=== PATIENT | female | born 1945 | race Caucasian/White ===

== ENCOUNTER 2023-09-24 14:18 | Day surgery (SDC) | payer MEDICARE, OTHER, SELFPAY ==
--- NOTE | 2023-09-24 09:22 | ED.GENMED ---
History of Present Illness
General
Chief Complaint: Abdominal Pain
Source: patient
Exam Limitations: none
Time Seen by Provider: 09/24/23 09:00
Travel History
Have you had any contact with someone who has COVID-19?: No
Do you have any symptoms of coronavirus? Fever > 100 degrees, chills, cough, shortness of breath, sore throat, loss of taste or smell, muscle aches, or headache?: No
History of Present Illness
History of Present Illness:
78-year-old female started with abdominal bloating 2 days ago. Then noted right lower quadrant pain. Some anorexia some nausea. Possible fever at home. No history of similar pain. Increased pain with bouncing
Past History
Past History
ED Past Medical History: GERD
ED Past Surgical History: Gynecological and Tonsilectomy
Social History
Tobacco: Non-smoker
Alcohol: Occasional
Personal:
Living: with family
Employment: Retired
Family History
Family History: CAD
Review of Systems
Review of Systems
All Other Systems: Not applicable
Respiratory: Reports no symptoms
Cardiac: Reports no symptoms
ABD/GI: Reports black stools
Phy Exam
Physical Exam
Physical Exam:
GENERAL: Alert and oriented in no apparent distress
EYE: Orbits normal.
NECK: Supple
CARDIAC: Regular rate and rhythm without any obvious murmurs.
LUNGS: Clear breath sounds,normal
ABDOMEN: Soft, bowel sounds present. Moderate right lower quadrant tenderness. Some referred pain with palpation. No rebound or guarding no mass or hernia. Stool test negative. No CVA tenderness
NEUROLOGICAL: Alert and oriented , grossly non-focal
SKIN: Warm and dry, no rash or lesion, no discoloration, skin intact.
MUSCULOSKELETAL: No edema,no deformity.Good color
PSYCH: Normal and appropriate interaction.
Course
Orders/Labs/Results
Orders:
Orders
09/24/23 Breakfast
Regular
09/24/23 09:12
CT Abd/pel W Iv And Oral Contr Urgent
Comment:
Reason For Exam: Right lower quadrant pain
IV Insert/Care/Rem.- Treatment PRN
0.9% Sodium Chloride 500 ml [Nss] 500 ml IV BOLUS
Iohexol [Omnipaque] See Protocol PO NOW STA
09/24/23 09:23
Complete Blood Count/With Diff Urgent
Comprehensive Metabolic Panel Urgent
Lipase Urgent
09/24/23 11:07
Urinalysis Reflex To Culture Urgent
Date Specimen was Collected: 09/24/23
Time Specimen was Collected: 11:00
09/24/23 12:37
Piperacillin/Tazo 3.375 Gram [Zosyn] 3.375 gram in 50 ml IV NOW
09/24/23 13:11
HYDROmorphone [Dilaudid] 0.25 mg IV PACU-Q5MPRN PRN
Meperidine [Demerol] 12.5 mg IV PACU-Q5MPRN PRN
Morphine Sulfate 1 mg IV PACU-Q5MPRN PRN
Ondansetron Injectable [Zofran] 4 mg IV PACU-ONCEPRN PRN
Notify MD As Directed
Notify physician if: for SDS patients with known or suspected sleep obstructive sleep apnea, monitor in the
PACU.
Notify MD for any apneic/desaturation episodes
O2 Therapy [RESP] Urgent
Titrate/Wean O2 to maintain O2 sat greater than (%): 92
Special Instructions: -Provide supplemental oxygen to achieve O2 sat of 92% or greater.
-After 15 min, may wean O2 and discontinue if patient is able to maintain O2 sat of 92%
or greater during recovery period.
If patient is a discharge home, without oxygen therapy, notify anestheiologist if
unable to maintain O2 SAT of 92% or greater on room air for MD clearance.
09/24/23 13:12
Bupivacaine Pf 0.5% [Sensorcaine 0.5% Single Dose] 30 ml .ROUTE .STK-MED ONE
09/24/23 13:15
Dexamethasone Sod Phosphate [Decadron] 20 mg .ROUTE .STK-MED ONE
Fentanyl Citrate/Pf [Sublimaze] 100 mcg .ROUTE .STK-MED ONE
Lidocaine HCl/Pf [Xylocaine-Mpf 1% Vial] 50 mg .ROUTE .STK-MED ONE
Normosol (Mult Electrolytes) [Normosol-R] 1,000 ml IV PER PROTOCOL
Propofol [Diprivan] 20 ml .ROUTE .STK-MED
Rocuronium [place] [Rocuronium] 50 mg .ROUTE .STK-MED ONE
09/24/23 14:18
OR Pathology Routine
Pre-Operative Diagnosis: acute appendicitis
Post-Operative Diagnosis: acute appendicitis
Operative Procedure: Lap Appendectomy
Surgeon: Dianna
Circulating Nurse: Zia
Specimen Type: appendix
09/24/23 14:20
Ketorolac [Toradol] 30 mg .ROUTE .STK-MED ONE
Sugammadex Sodium [Bridion] 200 mg .ROUTE .STK-MED ONE
09/24/23 14:28
Discharge Patient As Directed
09/24/23 14:32
Admit Patient As Directed
Co-Sign Provider:
Level of Care: Post Proc/Surg Recovery
Assign to:: Medical/Surgical
Physician / Group: Dianna
Diagnosis: Acute appendicitis
Reason for Overnight Stay: Standard of Care
Code Status As Directed
Resuscitation Status: Full Code
Activity As Directed
Activity Level: Out of Bed-Early Mobility
Anti-embolism (TOR) Hose As Directed
Type: Thigh high
Intake/ Output As Directed
Frequency: Per unit guidelines
Vital Signs As Directed
Frequency: Per unit guidelines
09/24/23 14:33
Pneumatic Compression Sleeves As Directed
Type: Knee high
Rx Incentive Spirometry [RESP] Routine
Frequency: q1h while awake
# of times per hour: 10
DX Deep Vein Thrombosis Video Routine
09/24/23 14:56
Acetaminophen [Tylenol] 650 mg PO SDS-Q4HPRN PRN
Oxycodone [Roxicodone] 10 mg PO SDS-Q4HPRN PRN
Oxycodone [Roxicodone] 5 mg PO SDS-Q4HPRN PRN
09/24/23 18:00
Enoxaparin Sodium [Lovenox] 40 mg SC QPM
09/24/23 18:22
Ondansetron Injectable [Zofran] 4 mg IV SDS-ONCEPRN PRN
Abnormal Lab Results
09/24/23
09:23
WBC 15.2 H 10^3/uL
(4.8-10.8)
MPV 10.9 H fL
(7.4-10.4)
Abs Immat Gran (auto) 0.1 H 10^3/uL
(0-0.05)
Absolute Neuts (auto) 13.3 H 10^3/uL
(1.4-6.5)
Absolute Lymphs (auto) 1.1 L 10^3/uL
(1.2-3.4)
Absolute Monos (auto) 0.7 H 10^3/uL
(0.1-0.6)
Neutrophils % 87.0 H %
(42.2-75.2)
Lymphocytes % 7.2 L %
(20.5-51.1)
Glucose 154 H mg/dl
(70-99)
Total Protein 6.2 L g/dl
(6.3-8.2)
09/24/23 09:23
09/24/23 09:23
Vital Signs
Initial and Last Documented VS:
Initial Vital Signs
Temp Pulse Resp BP Pulse Ox
98.2 F 89 18 111/66 96
09/24/23 08:52 09/24/23 08:52 09/24/23 08:52 09/24/23 08:52 09/24/23 08:52
Last Documented Vital Signs
Temp Pulse Resp BP Pulse Ox
98.0 F 66 15 127/69 99
09/24/23 14:38 09/24/23 15:15 09/24/23 15:15 09/24/23 15:15 09/24/23 15:15
MDM/Problems Addressed
Differential Diagnosis Includes:
Very suspicious for appendicitis or right-sided diverticulitis. Workup in progress. Dark stool is negative. Patient has been taking Pepto-Bismol
*Radiology
Radiology exam reviewed: radiology read reviewed (Acute appendicitis)
*Pulse Oximetry
Patient hypoxic: no
*Critical Care Note
Total Time (30-74mins, 75-104mins- exclusive of procedures): Not Applicable
Update Note
Update Note:
Patient updated on CT findings. Surgery contacted. Awaiting callback. Patient will be given copy of CT report to follow-up the narrowing
ED Attending Note
-
Portions of this chart may have been created with voice recognition software.� Occasional wrong word or��sound alike� substitutions may have occurred due to the inherent limitations of voice recognition software.
Discharge Plan
Departure
Patient Disposition: Admit
Date of Disposition: 09/24/23
Time of Disposition: 12:04
Presentation/result/management discussed w/ accepting MD/DO: Surgery
Discharge Problem:
Acute appendicitis
Interventions
Interventions:
*Risk Screen - Suicide Last Done: 09/24/23 08:55
*General Assessment Last Done: 09/24/23 08:55
*Neglect/Abuse Screening Last Done: 09/24/23 08:55
ED- Fall Risk Assessment Last Done: 09/24/23 09:07
*ED COVID-19 Vaccine History Last Done: 09/24/23 09:33
*Nursing Disposition Last Done: 09/24/23 13:23
YQ-Udwiuu-Ofrufmzoaw Assessment Last Done: 09/24/23 09:04
Discharge Date and Time
Discharge Date/Time: 09/24/23 13:24
[2023-09-24] MEDS: OMNIPAQUE 50 ML PO (09:27)
[2023-09-24] MEDS: NSS 500 IV (09:28)
[2023-09-24 09:29] LABS: % Basophils 0.4 % (0-2); % Eosinophils 0.5 % (0-6); % Immature Granulocytes 0.5 % (0-0.5); % Lymphocytes 7.2 % (20.5-51.1); % Monocytes 4.4 % (1.7-9.3); Absolute Basophils 0.1 10^3/uL (0-0.2); Absolute Eosinophils 0.1 10^3/uL (0-0.7); Absolute Immature Granulocytes 0.1 10^3/uL (0-0.05); Absolute Lymphocytes 1.1 10^3/uL (1.2-3.4); Absolute Monocytes 0.7 10^3/uL (0.1-0.6); Absolute Neutrophils 13.3 10^3/uL (1.4-6.5); Hematocrit 37.8 % (37.0-47.0); Hemoglobin 12.9 g/dL (12.0-16.0); Mean Corp Hgb Conc. 34.1 g/dL (33.0-37.0); Mean Corpuscular Hgb 29.5 pg (27.0-31.0); Mean Corpuscular Volume 86.3 fL (81.0-99.0); Mean Platelet Volume 10.9 fL (7.4-10.4); Nucleated Red Blood Cells % 0 %; Platelet Count 184 10^3/uL (130-400); Red Blood Cell Count 4.38 10^6/uL (4.20-5.40); Red Cell Dist. Width 13.5 % (11.5-14.5); White Blood Cell Count 15.2 10^3/uL (4.8-10.8)
[2023-09-24 09:52] LABS: ALT (SGPT) 26 U/L (0-35); AST (SGOT) 29 U/L (14-36); Albumin 3.5 g/dl (3.5-5.0); Alkaline Phosphatase 60 U/L (38-126); Blood Urea Nitrogen 12 mg/dl (7-17); Calcium 9.1 mg/dl (8.4-10.2); Carbon Dioxide 25 mmol/L (22-30); Chloride 102 mmol/L (98-107); Glucose 154 mg/dl (70-99); Sodium 135 mmol/L (135-145); Total Bilirubin 1.3 mg/dl (0.2-1.3); Total Protein 6.2 g/dl (6.3-8.2); eGFR > 60.00
[2023-09-24 10:14] LABS: Lipase 61 U/L (23-300)
[2023-09-24 11:22] LABS: Urine Albumin Negative (Neg - Trace); Urine Bilirubin Negative (Negative); Urine Character Clear (Clear); Urine Color Yellow; Urine Glucose Negative (Negative); Urine Ketone Negative (Negative); Urine Leukocyte Negative (Negative); Urine Nitrite Negative (Negative); Urine Occult Blood Negative (Negative); Urine Urobilinogen Negative (Neg - 1+)
[2023-09-24] MEDS: ZOSYN 50 IV (12:50)
--- NOTE | 2023-09-24 14:29 | CON.GS ---
Consultation
-
Requesting Provider: Eliecer
Performing Provider: Dianna
Reason for Consultation: Abd pain
Medical History
-
Chief Complaint: Abd pain
History of Present Illness:
78F with 2 day hx of acute onset abd discomfort. Began with bloating/anorexia/nausea, then developed pain to the RLQ. Pain exacerbated by bumpy car ride. Endorses nausea, subjective fevers, denies vomiting. No prior similar episodes.
Past Medical History
Past Medical History: GERD
Past Surgical History: Gynecological and Tonsilectomy
Social History
Tobacco: Non-Smoker
Alcohol: Occasional
Personal:
Living: With Family
Family History
Family History: Reviewed & Noncontributory
Allergies / Home Medications
Allergy/AdvReac Type Severity Reaction Status Date / Time
Sulfa (Sulfonamide Allergy Unknown Verified 09/24/23 08:52
Antibiotics)
sulfacetamide Allergy Unknown Verified 09/24/23 08:52
artificial sweetners Allergy Rash Uncoded 09/03/17 10:14
Medication Instructions Recorded Confirmed Type
Calcium Plus Power 1 tsp PO DAILY Supplement 08/22/17 09/24/23 History
Opc Supplement 1 tsp PO DAILY Supplement 08/22/17 09/24/23 History
lutein 40 mg capsule 40 mg PO DAILY Supplement 09/03/17 09/24/23 History
amoxicillin 875 mg-potassium 1 tab PO Q12 antibiotic #10 tabs 09/24/23 Rx
clavulanate 125 mg tablet
diphenhydramine 25 1 tab PO HSPRN PRN insomnia 09/24/23 09/24/23 History
mg-acetaminophen 500 mg tablet
(Tylenol PM Extra Strength)
fluticasone propionate 50 1 spray intranasal HS Congestion 09/24/23 09/24/23 History
mcg/actuation nasal
spray,suspension
magnesium oxide 500 mg PO DAILY Supplement 09/24/23 09/24/23 History
omeprazole 20 mg capsule,delayed 20 mg PO Q48H@0800 09/24/23 09/24/23 History
release Gastrointestinal Issue
oxycodone 5 mg tablet 5 - 10 mg PO Q4HPRN PRN moderate 09/24/23 Rx
to severe pain #10 tabs
therapeutic multivitamin 1 tab PO DAILY Supplement 09/24/23 09/24/23 History
vitamin B complex 1 tab PO DAILY Supplement 09/24/23 09/24/23 History
Review of Systems
-
A 10 point review of systems was completed, and was negative except as per HPI.
Physical Exam
Vital Signs
Temp Pulse Resp BP Pulse Ox
98.2 F 89 18 114/70 98
09/24/23 08:52 09/24/23 08:52 09/24/23 08:52 09/24/23 12:54 09/24/23 13:01
09/23/23 09/24/23 09/25/23
06:59 06:59 06:59
Actual Weight 71 kg
Lab Results
09/24/23 09:23
09/24/23 09:23
WBC 15.2 10^3/uL (4.8-10.8) H 09/24/23 09:23
Hgb 12.9 g/dL (12.0-16.0) 09/24/23 09:23
Hct 37.8 % (37.0-47.0) 09/24/23 09:23
Plt Count 184 10^3/uL (130-400) 09/24/23 09:23
Abs Immat Gran (auto) 0.1 10^3/uL (0-0.05) H 09/24/23 09:23
Neutrophils % 87.0 % (42.2-75.2) H 09/24/23 09:23
Physical Exam
General: Well Developed, Well Nourished and No Apparent Distress
HEENT: Normocephalic and Anicteric
GI: Soft, Non Distended and Tender (ttp to RLQ)
Skin: Warm and Dry
Neuro: AO x 3
Psych: Calm
Data Reviewed
-
CT Scan: Image Personally Visualized and interpreted, Report Reviewed by me, Discussed with Physician, Discussed with Patient and Discussed with Family
Labs: Labs Reviewed by me
Old Records: Reviewed
Assessment / Plan
-
78F with acute appendicitis
AFVSS, ttp to RLQ
WBC 15K
CT A/P with retrocecal appendix with surrounding stranding, no sign of perforation
OCTOR for lap appy
IV zosyn
--- NOTE | 2023-09-24 14:35 | OR.RPT ---
Operative Report
Operative Report
Primary Surgeon: Dianna
Assisting: Storm DIAZ
Pre-op Diagnosis: Acute appendicitis
Post-op Diagnosis: Same
Procedure Performed: Laparoscopic appendectomy
Anesthesia Type: GETA
Specimen / Cultures: Appendix
Estimated Blood Loss: 5cc
Complications: None immediate
Operative Findings: Severely inflamed retrocecal appendix, dry pelvis, no purulence or contamination, no evidence of perforation
Date of Surgery: 09/24/23
Indications: This 78Fdeveloped right lower quadrant abdominal pain and on workup was found to have acute appendicitis. Laparoscopic appendectomy was elected.
Description of procedure: The patient was placed on the operating table in the supine position. General anesthesia was induced. A time-out was completed verifying correct patient, procedure, site, positioning, and special equipment prior to
beginning this procedure. An orogastric tube was placed. The abdomen was prepped and draped in the usual sterile fashion. A stab incision was made in left upper quadrant and the Veress needle was inserted. Proper position was confirmed by aspiration
and saline meniscus test. The abdomen was insufflated with carbon dioxide to a pressure of 12 mmHg. The patient tolerated insufflation well.
A 5mm optical trocar was then inserted at the left lower quadrant. The laparoscope was inserted and the abdomen inspected. No injuries from initial trocar placement or Veress needle insertion were noted. Additional trocars were then inserted in the
following locations: a 12-mm trocar at the umbilicus and a 5-mm trocar midline in the suprapubic space. The abdomen was inspected and no abnormalities were found. The table was placed in the Trendelenburg position with the right side up. The
appendix was tucked posterior to the cecum and fused to the lateral abdominal wall and the wall of the cecum. The right colon was gently retracted medially and mobilized off the abdominal wall with blunt sweeps and the ligasure. The tip of the
appendix was exposed. It was gently grasped with an atraumatic grasper and retracted toward the patient�s feet and abdominal wall. Thin attachments to the colon and abdominal wall were controlled with ligasure. This maneuver ultimately exposed the
appendiceal blood supply which was controlled with the Ligasure device. Following this, a laparoscopic linear cutting stapler with a 45mm flowers load was deployed and used to transect the appendix at its base. The appendix was placed in an endoscopic
retrieval bag, removed through the umbilical port, and passed off the table as a specimen.
We then turned our attention to the staple line, which was noted to be hemostatic. The pelvis was inspected and no free fluid was identified. The umbilical trocar site was closed at the fascial level laparoscopically with 2-0 PDS under direct
vision. Secondary trocars were removed under direct vision and noted to be hemostatic. The laparoscope was withdrawn and the abdomen was allowed to collapse. The skin was closed with subcuticular sutures of 4-0 monocryl and topical skin adhesive.
The orogastric tube was removed.
The patient tolerated the procedure well and was taken to the postanesthesia care unit in stable condition.
== END 2023-09-24 16:45 | disposition home or self-care (01) ==
LOC: PACU 14:18
PROVIDERS: ATTENDING PHYSICIAN Surgery; EMERGENCY PHYSICIAN Emergency Medicine; FAMILY PHYSICIAN Family Medicine
DX: K35.80 Unspecified acute appendicitis (principal)
CPT/HCPCS: 44970; 88304; 74177; 80053; 81003; 83690; 85025; 96361; 96374; 96375; 99285; Q9967

== ENCOUNTER 2024-07-02 12:49 | Day surgery (SDC) | payer MEDICARE, OTHER, SELFPAY ==
[2024-07-02] VITALS (15 sets, daily range): BP systolic 115–141; BP diastolic 59–93
--- NOTE | 2024-07-02 08:13 | ED.GENMED ---
History of Present Illness
General
Chief Complaint: Abdominal Pain
Source: patient and spouse
Exam Limitations: none
Time Seen by Provider: 07/02/24 07:59
Nursing documentation reviewed up to this point in time: agreed with
History of Present Illness
History of Present Illness:
78-year-old female with past medical history of GERD who presents to the emergency department for evaluation of abdominal pain. Patient has known history of gallstones that she has been dealing with for years but has symptoms infrequently. She
says that over the past few months she has had increased frequency of 'gallbladder attacks' and so she has a scheduled cholecystectomy in July with Dr. Bustamante. She says that Friday evening she started to have her typical biliary colic
symptoms�she reports pain in the right upper abdomen radiates through to her back. She says that symptoms were quite severe Friday evening; symptoms improved slightly but never completely resolved which is atypical�she has had consistent pain she
says now for about 36 hours. She has associated nausea, denies vomiting. She says her urine has been slightly dark but no dysuria. No fevers or chills. She denies any other complaints. Last meal was 7 PM last night.
Past History
Past History
ED Past Medical History: GERD
ED Past Surgical History: Gynecological and Tonsilectomy
Social History
Tobacco: Non-smoker
Alcohol: Occasional
Personal:
Living: with family
Employment: Retired
Family History
Family History: CAD
Review of Systems
Review of Systems
All Other Systems: ROS reviewed and negative except as documented in HPI and ROS
Constitutional: Denies fever or chills
Respiratory: Denies cough or trouble breathing
Cardiac: Denies chest pain or palpitations
ABD/GI: Reports abdominal pain and nausea; Denies vomiting, diarrhea or constipated
: Reports dark urine; Denies flank pain
Musculoskeletal: Denies neck pain or back pain
Neurological: Denies dizzy or headache
Phy Exam
Physical Exam
Physical Exam:
General: Awake, alert, oriented x3; no acute distress
Head: Normocephalic, atraumatic
Eyes: Conjunctiva normal, sclera anicteric
Throat: Airway intact, handling secretions
Neck: Trachea midline, supple without meningismus
Lungs: Clear to auscultation bilaterally, no wheezing, rales, rhonchi
Heart: Regular rate and rhythm, no murmurs, gallops, or rubs
Abd: Soft, non distended, tender to palpation diffusely with maximal right upper quadrant
Back: No CVA tenderness
Neuro: No gross deficits
Skin: no rash
Extremities: Warm and well-perfused with no edema
Scores
Heart Failure Risk
Heart Failure Risk Score: Not Applicable
Heart Score for Chest Pain Patients
STEMI patient?: Not applicable
Withdrawal Assessment of Alcohol
Withdrawal Assessment Completed?: Not applicable
Course
Orders/Labs/Results
Orders:
Orders
07/02/24 08:12
Complete Blood Count/With Diff Urgent
Morphine Sulfate 4 mg IV NOW STA
Ondansetron Injectable [Zofran] 4 mg IV NOW STA
07/02/24 08:13
Electrocardiogram (*1) Urgent
Reason for Study: PreOp
EKG- Treatment ONCE
US Abdomen Complete/Upper Urgent
Comment:
Reason For Exam: RUQ abd pain
07/02/24 08:18
Type+Screen Urgent
0.9% Sodium Chloride 1000 ml [Nss] 1,000 ml IV BOLUS
07/02/24 08:49
HYDROmorphone [Dilaudid] 0.5 mg IV NOW STA
07/02/24 08:53
Comprehensive Metabolic Panel Urgent
Lipase Urgent
07/02/24 11:25
CefTRIAXone [Rocephin] 1,000 mg IV NOW STA
MetroNIDAZOLE 500 MG/100 ML [Flagyl 500 mg] 100 ml IV NOW
Abnormal Lab Results
07/02/24 07/02/24
08:12 08:53
RBC 4.12 L 10^6/uL
(4.20-5.40)
Hct 36.7 L %
(37.0-47.0)
MPV 11.2 H fL
(7.4-10.4)
Abs Immat Gran (auto) 0.1 H 10^3/uL
(0-0.05)
Absolute Neuts (auto) 8.6 H 10^3/uL
(1.4-6.5)
Absolute Lymphs (auto) 1.0 L 10^3/uL
(1.2-3.4)
Absolute Monos (auto) 0.7 H 10^3/uL
(0.1-0.6)
Neutrophils % 82.3 H %
(42.2-75.2)
Lymphocytes % 9.7 L %
(20.5-51.1)
Sodium 133 L mmol/L
(135-145)
Glucose 116 H mg/dl
(70-99)
Calcium 7.7 L mg/dl
(8.4-10.2)
AST 39 H U/L
(14-36)
Total Protein 5.9 L g/dl
(6.3-8.2)
Albumin 3.3 L g/dl
(3.5-5.0)
07/02/24 08:12
07/02/24 08:53
Vital Signs
Initial and Last Documented VS:
Initial Vital Signs
Temp Pulse Resp BP Pulse Ox
36.9 C 83 16 118/64 98
07/02/24 07:45 07/02/24 07:45 07/02/24 07:45 07/02/24 07:45 07/02/24 07:45
Last Documented Vital Signs
Temp Pulse Resp BP Pulse Ox
36.9 C 78 14 126/65 98
07/02/24 07:45 07/02/24 09:15 07/02/24 09:15 07/02/24 09:00 07/02/24 07:45
MDM/Problems Addressed
Differential Diagnosis Includes:
Cholelithiasis/biliary colic, choledocholithiasis, cholecystitis, PUD, pancreatitis
MDM/Problems Addressed:
78-year-old female presents for evaluation of right upper quadrant abdominal pain rating to the back similar in quality to prior episodes of biliary colic but persisting much longer than usual�she has had constant symptoms for 36 hours. Nausea but
no vomiting. No fever. Vitals normal. Exam as above. Plan to place an IV check labs including a CBC and a CMP, lipase, type and screen. Preop EKG. Check upper abdominal ultrasound. Treat pain and nausea and provide fluids. Reassess after the
above.
Labs reviewed: CBC and CMP no clinically significant abnormalities�notably LFTs are essentially normal and lipase is normal. Abdominal ultrasound shows cholelithiasis with gallbladder wall thickening�with continued pain and tenderness concern for
acute cholecystitis. Will treat with ceftriaxone and Flagyl. Discussed case with general surgery, plan for OR.
Chronic conditions affecting care:
Cholelithiasis
*Radiology
Radiology exam reviewed: radiology read reviewed
*Pulse Oximetry
Patient hypoxic: no
*EKG
Interpreted by ED Provider?: Yes
Heart Rate: 80
Rate: normal
Rhythm: sinus
[place]: normal axis
Interval: normal interval
QRS Pattern: normal QRS
Ischemia: no ischemia
*Critical Care Note
Total Time (30-74mins, 75-104mins- exclusive of procedures): Not Applicable
Data Reviewed
Review of Other/Old Records Reveals: Labs and Records
Source: patient and spouse
ED Attending Note
-
Portions of this chart may have been created with voice recognition software.� Occasional wrong word or��sound alike� substitutions may have occurred due to the inherent limitations of voice recognition software.
Discharge Plan
Departure
Patient Disposition: Admit
Date of Disposition: 07/02/24
Time of Disposition: 11:26
Admit to doctor: Dr. Escobar
Presentation/result/management discussed w/ accepting MD/DO: General Surgery
Discharge Problem:
Acute cholecystitis
Prescriptions:
No Action
calcium carbonate-vitamin D3 [Calcium 500 + D] 500 mg-10 mcg (400 unit) Tablet,Chewable
1 tab PO DAILY Qty: 0
lutein 40 MG capsule
40 mg PO DAILY
magnesium oxide 500 mg magnesium Tablet
500 mg PO QPM
omeprazole 20 mg capsule,delayed release(DR/EC)
20 mg PO Q48H@0800
fluticasone propionate 50 mcg/actuation spray,suspension
2 spray INTRANASAL HS
therapeutic multivitamin Tablet
1 tab PO DAILY
vitamin B complex Tablet
1 tab PO DAILY
Referrals:
Manoj Swan MD [Family Provider] -
Interventions
Interventions:
*Risk Screen - Suicide Last Done: 07/02/24 07:45
*General Assessment Last Done: 07/02/24 07:45
*Neglect/Abuse Screening Last Done: 07/02/24 07:45
ED- Fall Risk Assessment Last Done: 07/02/24 08:30
*ED COVID-19 Vaccine History Last Done: 07/02/24 08:30
VC-Exxpjc-Iqyohhglvc Assessment Last Done: 07/02/24 08:30
Discharge Date and Time
Print Language: ARMENIAN
[2024-07-02 08:20] LABS: % Basophils 0.4 % (0-2); % Eosinophils 0.5 % (0-6); % Immature Granulocytes 0.5 % (0-0.5); % Lymphocytes 9.7 % (20.5-51.1); % Monocytes 6.6 % (1.7-9.3); % Neutrophils 82.3 % (42.2-75.2); Absolute Eosinophils 0.1 10^3/uL (0-0.7); Absolute Immature Granulocytes 0.1 10^3/uL (0-0.05); Absolute Monocytes 0.7 10^3/uL (0.1-0.6); Absolute Neutrophils 8.6 10^3/uL (1.4-6.5); Hematocrit 36.7 % (37.0-47.0); Hemoglobin 12.3 g/dL (12.0-16.0); Mean Corp Hgb Conc. 33.5 g/dL (33.0-37.0); Mean Corpuscular Hgb 29.9 pg (27.0-31.0); Mean Corpuscular Volume 89.1 fL (81.0-99.0); Mean Platelet Volume 11.2 fL (7.4-10.4); Nucleated Red Blood Cells % 0 %; Platelet Count 225 10^3/uL (130-400); Red Blood Cell Count 4.12 10^6/uL (4.20-5.40); White Blood Cell Count 10.4 10^3/uL (4.8-10.8)
[2024-07-02] MEDS: ZOFRAN 4 MG IV (08:26)
[2024-07-02] MEDS: MORPHINE SULFATE 4 MG IV (08:26)
[2024-07-02] MEDS: NSS 1000 IV (08:28)
[2024-07-02] MEDS: DILAUDID 0.5 MG IV (08:53)
[2024-07-02 09:23] LABS: ALT (SGPT) 34 U/L (0-35); AST (SGOT) 39 U/L (14-36); Albumin 3.3 g/dl (3.5-5.0); Alkaline Phosphatase 62 U/L (38-126); Blood Urea Nitrogen 14 mg/dl (7-17); Calcium 7.7 mg/dl (8.4-10.2); Carbon Dioxide 24 mmol/L (22-30); Chloride 100 mmol/L (98-107); Glucose 116 mg/dl (70-99); Lipase 56 U/L (23-300); Potassium 4.2 mmol/L (3.5-5.1); Sodium 133 mmol/L (135-145); Total Bilirubin 0.9 mg/dl (0.2-1.3); Total Protein 5.9 g/dl (6.3-8.2); eGFR > 60.00
[2024-07-02] MEDS: ROCEPHIN 1000 MG IV (11:48)
--- NOTE | 2024-07-02 15:08 | W.IMMPOSTOP ---
Surgical Immed Post Op Note
-
Primary Surgeon: Shawn
Assisting Surgeon: JOE Cardenas
Pre-op Diagnosis: Acute on chronic cholecystitis
Post-op Diagnosis: Acute on chronic cholecystis
Procedure Performed: Laparoscopic cholecystectomy with IOC
Anesthesia Type: General
Specimen / Cultures:
1. Gallbladder
Estimated Blood Loss: 7 cc
Complications: None
Operative Findings:
1. Severe wall thickening with acute on chronic inflammation, dense scar at the level of the infundibulum
2 Artery taken with clips, clear view of cystic duct entering into the gallbladder with inferior 1/3 taken off the hepatic plate.
3. IOC with anatomy confirmed no evidence of any filling defects, multiple stones milked out of ductotomy prior to IOC
Plan:
-- Antibiotics while in the hospital
-- Routine care otherwise
[2024-07-02] MEDS: FLUSH (NSS) 1 FLUSH IV (18:25)
[2024-07-02] MEDS: ZOSYN 50 IV ×2 (18:25→23:10)
[2024-07-02] MEDS: TYLENOL 650 MG PO (21:34)
[2024-07-03 00:03] VITALS: BP 103/55
[2024-07-03] MEDS: TORADOL 10 MG IV ×2 (02:36→08:36)
[2024-07-03 03:04] VITALS: BP 123/69
[2024-07-03] MEDS: ZOSYN 50 IV (05:56)
[2024-07-03 07:58] VITALS: BP 105/60
[2024-07-03] MEDS: PROTONIX 40 MG PO (08:33)
--- NOTE | 2024-07-03 10:05 | W.PN.GS2 ---
Today's Communication / Plan
-
Dispo planning
Assessment / Plan
-
78 yo female presenting with acute on chronic cholecystitis now POD #1 lap harsh
AFVSS
Progressing well post operatively; tolerating diet with good pain control
--Continue LFD
--Analgesics prn
--Discharge to home for outpatient follow up
Subjective Data
-
Date of Service: July 03, 2024
Patient seen and examined at bedside with Dr. Hyman. Denies n/v. Tolerating diet. Shoulder pain overnight on the right side, now improved. Some mild incisional discomfort.
Objective Data
-
Intake and Output
07/02/24 07/03/24 07/04/24
06:59 06:59 06:59
Intake Total 1260 / 1260
Balance 1260 / 1260
Intake:
Oral fluids 960 / 960
IV fluids (Total) 300 / 300
Normosol 300 / 300
Other:
Number of approximated MODERATE 4
amounts of urine
Vital Signs
Temp Pulse Resp BP Pulse Ox
97.7 F 63 16 105/60 97
07/03/24 07:58 07/03/24 07:58 07/03/24 07:58 07/03/24 07:58 07/03/24 08:00
Lab Results
07/02/24 08:12
07/02/24 08:53
Calcium 7.7 mg/dl (8.4-10.2) L 07/02/24 08:53
Total Bilirubin 0.9 mg/dl (0.2-1.3) 07/02/24 08:53
AST 39 U/L (14-36) H 07/02/24 08:53
ALT 34 U/L (0-35) 07/02/24 08:53
Alkaline Phosphatase 62 U/L (38-126) 07/02/24 08:53
Total Protein 5.9 g/dl (6.3-8.2) L 07/02/24 08:53
Albumin 3.3 g/dl (3.5-5.0) L 07/02/24 08:53
Physical Exam
-
NAD
ABD soft, nd, mild incisional tenderness
Incisions clear, dry and intact
--- NOTE | 2024-07-03 10:15 | W.DS.TRANS ---
DC Summary - Tube [employer]
-
Discharge Instructions:
Discharge Diagnosis/Procedures Cholecystitis
Diet Low Fat,As tolerated
Additional Diets If you have loose stools after surgery, avoid
oily or greasy foods as well as high fat dairy
Activity No strenuous activity
Additional Activity Do not lift over 15lbs for the next 2-3 weeks
Driving Restrictions Wait until comfortable twisting/off narcotics
Bathing Restrictions OK to Shower
Wound Care Allow the glue to flake off your incisions on
its own over the next 2-3 weeks. Avoid scrubbing
or picking it off. Beneath the glue are
dissolving sutures.
Instructions:
Stand-Alone Forms:
Changes to Home Medications: No
Discharge Medications:
DC Medications w/original date entered in [employer]
calcium 500 mg (as carbonate)-vit D3 10 mcg (400 unit) chewable tablet (Calcium 500 + D) 1 tab PO DAILY Supplement ##0 08/22/17
lutein 40 mg capsule 40 mg PO DAILY Supplement 09/03/17
fluticasone propionate 50 mcg/actuation nasal spray,suspension 2 spray intranasal HS Congestion 09/24/23
magnesium oxide 500 mg PO QPM Supplement 09/24/23
omeprazole 20 mg capsule,delayed release 20 mg PO Q48H@0800 Gastrointestinal Issue 09/24/23
therapeutic multivitamin 1 tab PO DAILY Supplement 09/24/23
vitamin B complex 1 tab PO DAILY Supplement 09/24/23
acetaminophen 325 mg tablet 650 mg (2 x 325 mg) PO Q4HPRN PRN mild pain #1 tab 07/03/24
ibuprofen 200 mg tablet 400 - 600 mg (2 - 3 x 200 mg) PO Q6HPRN PRN moderate pain #1 tab 07/03/24
oxycodone 5 mg tablet 5 mg PO Q4HPRN PRN breakthrough/severe pain #8 tabs 07/03/24
Home Medication Changes
Pending Results: No
--- NOTE | 2024-07-03 11:05 | CM ---
Patient seen at bedside. Patient for discharge today home with . Patient stated that she lives iwth in a 2 story home with no DME at home. Patient PCP is Dr. Swan and she uses the [facility]. Patient states that she has
no discharge needs and will be her to transport. CM will continue to follow for discharge planning needs.
Plan; home with no needs
== END 2024-07-03 11:01 | disposition home or self-care (01) ==
LOC: PACU 12:49
PROVIDERS: ATTENDING PHYSICIAN Surgery; EMERGENCY PHYSICIAN Emergency Medicine; FAMILY PHYSICIAN Family Medicine
DX: K80.12 Calculus of gallbladder with acute and chronic cholecystitis without obstruction (principal)
CPT/HCPCS: 47563; 88304; 74300; 76000; 76700; 80053; 83690; 85025; 86850; 86900; 86901; 93005; 96361; 96374; 96375; 99285; A4300

== ENCOUNTER 2024-07-05 23:13 | Emergency (ER) | payer MEDICARE, OTHER, SELFPAY ==
[2024-07-05 23:15] VITALS: BP 95/62
--- NOTE | 2024-07-05 23:49 | ED.GENMED ---
History of Present Illness
General
Chief Complaint: DVT/Possible Blood Clot
Source: patient and records
Exam Limitations: none
Time Seen by Provider: 07/05/24 23:36
Nursing documentation reviewed up to this point in time: agreed with
History of Present Illness
History of Present Illness:
78-year-old female left calf pain onset a few hours ago, she is status post gallbladder removal last week, no chest pain or shortness of breath she is getting around okay no abdominal pain using ibuprofen no history of DVT PE other does run in the
family she states no fevers, denies any direct trauma to her calf or falls
Past History
Past History
ED Past Medical History: GERD
ED Past Surgical History: Cholecystectomy, Gynecological and Tonsilectomy
Social History
Tobacco: Non-smoker
Alcohol: Occasional
Drug: None
Personal:
Living: with family
Employment: Retired
Family History
Family History: CAD and Other (DVT PE)
Review of Systems
Review of Systems
All Other Systems: Not applicable
Constitutional: Denies fever or fatigue
EENT: Reports no symptoms
Respiratory: Reports no symptoms; Denies cough or trouble breathing
Cardiac: Reports no symptoms
ABD/GI: Reports no symptoms
: Reports no symptoms
Musculoskeletal: Reports muscle pain; Denies edema
Skin: Reports no symptoms
Neurological: Reports no symptoms
Phy Exam
Physical Exam
Physical Exam:
Physical Exam
General: no apparent distress, not acutely ill
Neck: No jaw
Heart: s1/s2 regular rate and rhythm, no murmur. equal radial pulses.
Lungs: no acute respiratory distress. clear bilaterally
Neuro: alert and oriented. no focal neurological deficits
Skin: no rash
Psychiatric: well kept. interactive and cooperative
Extremities: No edema/no calf pain/no cords no warmth bilaterally
Course
Orders/Labs/Results
Orders:
Orders
07/06/24 00:00
US Periph Venous LOWER Ext LT Urgent
Reason For Exam: post op pain
Vital Signs
Initial and Last Documented VS:
Initial Vital Signs
Temp Pulse Resp BP Pulse Ox
97.9 F 71 18 95/62 100
07/05/24 23:15 07/05/24 23:15 07/05/24 23:15 07/05/24 23:15 07/05/24 23:15
Last Documented Vital Signs
Temp Pulse Resp BP Pulse Ox
97.9 F 71 18 95/62 100
07/05/24 23:15 07/05/24 23:15 07/05/24 23:15 07/05/24 23:15 07/05/24 23:15
MDM/Problems Addressed
Differential Diagnosis Includes:
DVT strain nonspecific calf pain recent surgery
MDM/Problems Addressed:
Calf pain
Chronic conditions affecting care: Previous abdomnial surgery
Acute Exacerbation and/or Progression of Chronic Illness: Previous abdomnial surgery
*Radiology
Radiology exam reviewed: radiology read reviewed
*Pulse Oximetry
Patient hypoxic: no
*Critical Care Note
Total Time (30-74mins, 75-104mins- exclusive of procedures): Not Applicable
Update Note
Update Note:
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
ED Attending Note
-
Portions of this chart may have been created with voice recognition software.� Occasional wrong word or��sound alike� substitutions may have occurred due to the inherent limitations of voice recognition software.
Discharge Plan
Departure
Patient Disposition: Home (Routine Discharge)
Date of Disposition: 07/06/24
Time of Disposition: 00:51
Patient with high blood pressure during this ER visit?: No
Condition: Good
Discharge Problem:
Leg pain
Instructions: Acute Pain, Adult
Prescriptions:
No Action
calcium carbonate-vitamin D3 [Calcium 500 + D] 500 mg-10 mcg (400 unit) Tablet,Chewable
1 tab PO DAILY Qty: 0
lutein 40 MG capsule
40 mg PO DAILY
magnesium oxide 500 mg magnesium Tablet
500 mg PO QPM
omeprazole 20 mg capsule,delayed release(DR/EC)
20 mg PO Q48H@0800
fluticasone propionate 50 mcg/actuation spray,suspension
2 spray INTRANASAL HS
therapeutic multivitamin Tablet
1 tab PO DAILY
vitamin B complex Tablet
1 tab PO DAILY
acetaminophen 325 mg tablet
650 mg PO Q4HPRN PRN (Reason: mild pain) Qty: 1 0RF
ibuprofen 200 mg tablet
400 - 600 mg PO Q6HPRN PRN (Reason: moderate pain) Qty: 1 0RF
oxycodone 5 mg tablet
5 mg PO Q4HPRN PRN (Reason: breakthrough/severe pain) Qty: 8 0RF
Referrals:
Manoj Swan MD [Family Provider] - Follow up in 1 week
Activity Restrictions/Additional Instructions:
Keep moving, take frequent walks, Tylenol or ibuprofen for pain
Interventions
Interventions:
*Risk Screen - Suicide Last Done: 07/05/24 23:15
*General Assessment Last Done: 07/05/24 23:15
*Neglect/Abuse Screening Last Done: 07/05/24 23:15
*ED COVID-19 Vaccine History Last Done: 07/05/24 23:15
Discharge Date and Time
Print Language: LATVIAN
== END 2024-07-06 01:14 | disposition home or self-care (01) ==
LOC: EMR 23:13
PROVIDERS: EMERGENCY PHYSICIAN Emergency Medicine; FAMILY PHYSICIAN Family Medicine
DX: M79.662 Pain in left lower leg (principal); K21.9 Gastro-esophageal reflux disease without esophagitis; Z90.49 Acquired absence of other specified parts of digestive tract
CPT/HCPCS: 99284; 93971

== ENCOUNTER → 2024-07-21 12:51 | Outpatient (REF) | payer MEDICARE, OTHER, SELFPAY ==
--- NOTE | 2024-07-02 11:22 | HPS.HSE ---
Family Physician
-
Family Physician: CHRISTIE Umanzor
Chief Complaint
-
Upper abdominal pain
History of Present Illness
Patient is a 78 yo F with a PMH of GERD, s/p hysterectomy, and s/p laparoscopic appendectomy who presents with several days of upper abdominal pain. Ms. Medina states that her symptoms began this past Friday. She reports approximately 3 days of
epigastric and RUQ abdominal pain with radiation to her RIGHT shoulder. Associated nausea, but no vomiting. No fevers or chills. She denies any jaundice, pale stools, or tea colored urine. She states that she has had prior attacks over the past
year, but that these were more self-limiting and less severe. She recently saw Dr. Bustamante in the office yesterday with plans for outpatient cholecystectomy. She reports persistent upper abdominal discomfort.
Medical History
Past Medical History
Past Medical History: Reports GERD
Past Surgical History: Reports Appendectomy (Laparoscopic 09/2023) and Gynocological (Hysterectomy)
Social History
Tobacco: Non-smoker
Alcohol: Occasional
Drug: None
Living: With Family
Family History
Family History: Not pertinent
Allergies / Home Medications
Allergies reflects when Allergies were last updated in [facility].
Home Medications with original date entered in [facility]
Allergy/Medication List:
Sulfa
Review of Systems
-
A 12 point ROS was completed and negative except as noted: Yes
Physical Exam
Physical Exam
General: Well Developed, Well Nourished and No Apparent Distress
HEENT: NormoCephalic and Anicteric
Respiratory: Non Labored Respirations
Cardiac: Regular Rhythm
GI: Soft, Non Distended, Tender (Epigastrium and RUQ) and Other (Non-peritoneal)
Musculoskeletal: No Edema
Skin: Warm and Dry
Neuro: Nonfocal/grossly intact
Data Reviewed
-
Ultrasound: Image Personally Visualized and interpreted and Report Reviewed by me
Lab Data: Labs Reviewed by me
Impression/Plan
-
IMPRESSION:
Patient is a 78 yo F p/w acute on chronic cholecystitis
Workup including labs and imaging was reviewed. The natural history and pathophysiology of biliary and stone disease has been previously discussed. Options for management including medical management with a low-fat diet and further pursuit and
outpatient cholecystectomy versus proceeding with cholecystectomy during this presentation. Patient presents for cholecystectomy.
Plan for a laparoscopic cholecystectomy with possible cholangiogram. The procedure itself, as well as the risks, benefits, and alternatives was discussed. Specifically, we discussed the risks of bleeding, infection, injury to surrounding
structures (bowel, bile ducts), CBD injury, need for open procedure. Typical postprocedure recovery was discussed. All questions answered. Consent signed.
PLAN:
-- Laparoscopic cholecystectomy with possible IOC
-- NPO, IVF
-- Antibiotics: Zosyn
-- Pain control: Tylenol and IV Dilaudid as needed
-- Admit postoperatively
--- NOTE | 2024-07-02 11:28 | W.SUR.PREOP ---
Pre-Operative Surgical Note
-
I have examined this patient prior to the performance of the scheduled procedure.
The patient's condition is unchanged from the time of the current History and
Physical and the patient is able to undergo the scheduled procedure.
== END ==
LOC: RAD 12:51
PROVIDERS: ATTENDING PHYSICIAN Nurse Practitioner Family; FAMILY PHYSICIAN Family Medicine
DX: M79.671 Pain in right foot (principal); M79.672 Pain in left foot
CPT/HCPCS: 93922; 93925

== ENCOUNTER → 2024-12-14 15:11 | Outpatient (REF) | payer MEDICARE, OTHER, SELFPAY | LOC: WDC 15:11 | PROVIDERS: ATTENDING PHYSICIAN Family Medicine | DX: Z78.0 Asymptomatic menopausal state (principal); Z12.31 Encounter for screening mammogram for malignant neoplasm of breast | CPT/HCPCS: 77063; 77067; 77080 ==

== ENCOUNTER 2025-04-01 23:39 | Emergency (ER) | payer MEDICARE, OTHER, SELFPAY ==
[2025-04-01 23:40] VITALS: BP 111/67
[2025-04-02 01:48] VITALS: BMI 25.3
--- NOTE | 2025-04-02 02:28 | ED.SKININJ ---
HPI-Injury
General
Chief Complaint: Skin Problem
Source: patient and spouse
Exam Limitations: none
Time Seen by Provider: 04/02/25 01:23
Nursing documentation reviewed up to this point in time: agreed with
History of Present Illness-Injury
Initial Injury comments:
Note:
CHIEF COMPLAINT(S)
Rash on the back and side of the body.
HISTORY OF PRESENT ILLNESS
The patient is an 79-year-old female who presents with a rash that she describes as vesicular in nature. She denies any previous history of shingles. The rash is located in a band-like distribution, predominantly on the back and extends to the side,
crossing along a dermatome. The patient reports that some areas of the rash resemble blisters and are sore, while others appear more like welts. The rashs description, along with its painful nature, is consistent with shingles, particularly given
its dermatomal distribution. The patient has not received antivirals for this condition before but is open to considering treatment options. The duration of treatment discussed was 10 days with the aim to reduce pain if treatment is initiated early.
PHYSICAL EXAM
General: Alert, no acute distress.
Skin: Vesicular rash observed on the back and right side following a dermatome, consistent with shingles. Some areas also presenting with welts.
Head: Normocephalic, atraumatic.
Neck: Supple, trachea midline.
Eye, Ears, nose, mouth, and throat: Oral mucosa moist.
Cardiovascular: Normal peripheral perfusion, No edema.
Respiratory: Respirations are non-labored.
Gastrointestinal: Abdomen nondistended.
Back: Rash observed in the dermatomal distribution.
Musculoskeletal: Normal range of motion, normal strength.
Neurological: Alert and oriented to person, place, time, and situation, No focal neurological deficit observed.
Psychiatric: Cooperative, appropriate mood & affect.
PROBLEM LIST
Acute Problems:
- Shingles (Herpes Zoster)
PLAN
- Initiate antiviral treatment for shingles, aiming to reduce the duration and severity of symptoms over a 10-day course.
DIFFERENTIAL DIAGNOSIS
The Differential Diagnosis includes, in no particular order and is not limited to:
1. Herpes Zoster (Shingles)
2. Contact Dermatitis
3. Allergic Reaction
4. Eczema
5. Psoriasis
6. Drug Rash
7. Folliculitis
8. Bacterial Infection (e.g., Impetigo)
9. Fungal Infection (e.g., Tinea)
10. Parasitic Rash (e.g., Scabies)
Disposition:
SUMMARY OF ENCOUNTER
The patient is an 79-year-old female who presented with a painful vesicular rash consistent with shingles on the left side in the C2 dermatome. She denies any fever, chills, or history of diabetes. The presentation and dermatomal distribution led to
a diagnosis of shingles. Management in the emergency department included starting antiviral treatment and advising on symptomatic relief measures.
ASSESSMENT
Shingles (Herpes Zoster), characterized by a vesicular rash in a dermatomal distribution with associated pain.
PLAN
- Initiate treatment with acyclovir for shingles over a 10-day course to reduce duration and severity.
- Advise using cool compresses and calamine lotion for symptomatic relief.
- Recommend NSAIDs for pain management.
PATIENT EDUCATION AND COUNSELING
The patient was educated about shingles, including the importance of early treatment to reduce symptoms. She was advised on the use of cool compresses and calamine lotion for comfort and the use of NSAIDs for pain relief.
MEDICATION RECONCILIATION
- Prescribed acyclovir for shingles.
- Suggested NSAIDs for pain relief.
MEDICAL DECISION MAKING
- Number and Complexity of Problems Addressed:
- Chronic conditions affecting care: (List of potential differential diagnosis)
- Differential Diagnosis: Herpes Zoster (Shingles), Contact Dermatitis, Allergic Reaction, Eczema, Psoriasis, Drug Rash, Folliculitis, Bacterial Infection (e.g., Impetigo), Fungal Infection (e.g., Tinea), Parasitic Rash (e.g., Scabies).
- Data:
- Category 1: Tests and documents were not specifically mentioned as reviewed or ordered, but clinical presentation supports the diagnosis.
- Category 2: No specific information was obtained from external sources beyond the patients report.
- Category 3: No additional specialist consultations or external management discussions mentioned.
- Risk:
- Prescription medication was prescribed: Acyclovir.
DIAGNOSIS
- Herpes Zoster (Shingles), ICD-10 Code: B02.9
Past History
Past History
ED Past Medical History: GERD
ED Past Surgical History: Cholecystectomy, Gynecological and Tonsilectomy
Social History
Tobacco: Non-smoker
Alcohol: Occasional
Drug: None
Personal:
Living: with family
Employment: Retired
Family History
Family History: CAD and Other (DVT PE)
Review of Systems
Review of Systems
Allergies reviewed?: Yes
All Other Systems: ROS reviewed and negative except as documented in HPI and ROS
Constitutional: Denies fever
Psychiatric: Reports anxiety
Phy Exam
General Physical Exam
General Presentation: well appearing and mild distress
General age: appears stated age
General Skin: warm and dry
General Habitus: normal
General Mental: alert
General Hydration: appears well hydrated
Course
Orders/Labs/Results
Orders:
Orders
04/02/25 02:26
Acyclovir [Zovirax] 800 mg PO NOW STA
Vital Signs
Initial and Last Documented VS:
Initial Vital Signs
Temp Pulse Resp BP Pulse Ox
98.2 F 85 16 111/67 97
04/01/25 23:40 04/01/25 23:40 04/01/25 23:40 04/01/25 23:40 04/01/25 23:40
Last Documented Vital Signs
Temp Pulse Resp BP Pulse Ox
98.2 F 85 16 111/67 98
04/01/25 23:40 04/01/25 23:40 04/01/25 23:40 04/01/25 23:40 04/02/25 02:28
*Pulse Oximetry
SaO2: 98
Oxygen Mode of Delivery: Room air
Patient hypoxic: no
*Critical Care Note
Total Time (30-74mins, 75-104mins- exclusive of procedures): Not Applicable
ED Attending Note
-
Portions of this chart may have been created with voice recognition software.� Occasional wrong word or��sound alike� substitutions may have occurred due to the inherent limitations of voice recognition software.
Discharge Plan
Departure
Patient Disposition: Home (Routine Discharge)
Date of Disposition: 04/02/25
Time of Disposition: 02:54
Patient with high blood pressure during this ER visit?: Yes
Condition: Good
Discharge Problem:
Shingles
Instructions: Skin Rash (DC), Shingles, BLOOD PRESSURE
Prescriptions:
New
acyclovir 800 mg tablet
800 mg PO 5/D 5 Days Qty: 25 0RF
No Action
calcium carbonate-vitamin D3 [Calcium 500 + D] 500 mg-10 mcg (400 unit) Tablet,Chewable
1 tab PO DAILY Qty: 0
lutein 40 MG capsule
40 mg PO DAILY
magnesium oxide 500 mg magnesium Tablet
500 mg PO QPM
omeprazole 20 mg capsule,delayed release(DR/EC)
20 mg PO Q48H@0800
fluticasone propionate 50 mcg/actuation spray,suspension
2 spray INTRANASAL HS
therapeutic multivitamin Tablet
1 tab PO DAILY
vitamin B complex Tablet
1 tab PO DAILY
acetaminophen 325 mg tablet
650 mg PO Q4HPRN PRN (Reason: mild pain) Qty: 1 0RF
ibuprofen 200 mg tablet
400 - 600 mg PO Q6HPRN PRN (Reason: moderate pain) Qty: 1 0RF
oxycodone 5 mg tablet
5 mg PO Q4HPRN PRN (Reason: breakthrough/severe pain) Qty: 8 0RF
Referrals:
Manoj Swan MD [Family Provider, Family Practice]
Activity Restrictions/Additional Instructions:
Thank You for choosing [facility].
It was a pleasure meeting you and taking part in your care. We hope for your continued healing and wellness.
Please read discharge instructions in their entirety. However, they are for general education and may not describe your exact diagnosis at discharge. Information on your ER visit and medical conditions were discussed with you along with appropriate
follow up information...
If indicated, please take your medications as instructed and indicated on discharge paperwork.
Please schedule a follow up appointment as directed. Call to schedule an appointment
Please return to the emergency department with ANY change in, persisting, or worsening of symptoms. If any of your symptoms do not improve, or persist, or become more severe within 6-12 hours, please return to the emergency department for further
care.
Please return to the emergency department if you develop a headache, neck pain/stiffness, fever greater than 100.4F, chest pain, shortness of breath, persistent nausea, vomiting, slurred speech, difficulty walking, numbness/tingling, weakness, signs
of infection or any other symptoms that are worrisome to you.
If you have any questions or concerns please do not hesitate to call the Hospital at or E-mail me directly at [email or web address]
Interventions
Interventions:
*Risk Screen - Suicide Last Done: 04/01/25 23:40
*General Assessment Last Done: 04/01/25 23:40
*Neglect/Abuse Screening Last Done: 04/01/25 23:40
*ED- Fall Risk Assessment Last Done: 04/02/25 01:48
*ED COVID-19 Vaccine History Last Done: 04/02/25 01:48
ED-Skin Assessment Last Done: 08/23/25 01:48
Discharge Date and Time
Print Language: BAHAMIAN
[2025-04-02] MEDS: ZOVIRAX 800 MG PO (02:50)
== END 2025-04-02 03:20 | disposition home or self-care (01) ==
LOC: EMR 23:39
PROVIDERS: EMERGENCY PHYSICIAN Student in an Organized Health Care Education/Training Program; FAMILY PHYSICIAN Family Medicine
DX: B02.9 Zoster without complications (principal)
CPT/HCPCS: 99283